=== PATIENT | male | born 1970 | race American Indian/Alaskan Native ===

== ENCOUNTER 2018-06-03 06:05 | Day surgery (SDC) | payer OTHER ==
[~2018-06-03] VITALS: Ht 165.1 cm; Wt 58.3 kg
[~2018-06-03 06:05] MED LIST: ACETAMINOPHEN325 M1 PO; ACIDOPHILUS1 EAC4 PO; ACIDOPHILUS1 EACH PO; ADULT WAL-100 MG/5 M PO; ALAVERT10 M1 PO; AMOX TR-K CLV1 EAC1 PO; ANTI-ITCH28 G1 TP; ATHLETE'S FOOT15 G1 TP; BACTRIM DS TAB1 EACH PO; BENZACLIN GEL25 GM TOP; CALCI-CHEW500 MG PO; CALCIUM ANTACID PO; CARBATROL300 MG PO; CEPHALEXIN500 MG PO; CHLORASEPTIC177 M1 MM; CITRATE OF MAG300 ML PO; CLARITIN10 M2 PO; CLEOCIN T30 ML TP; CLIND PH-BENZOY45 GM TP; CLINDA DERM TOP; CORTISONE14 GM TP; CORTIZONE-1028 GM TOP; COUGH SYRU100 MG/5 M PO; DEBROX15 ML; DEBROX15 ML OT; DIASTAT2.5 MG PR; DIAZEPAM GEL PR; DIAZEPAM5 MG RC; DIAZEPAM5 MG/5 ML PO; DOCUSATE SODIU100 MG PO; FLAGYL500 MG PO; GABAPENTIN100 MG PO; GABAPENTIN300 MG PO; GABAPENTIN400 MG PO; GUAIFENESIN; GUAIFENESIN600 MG PO; LAMISIL15 GM TOP; LOPERAMIDE2 MG PO; MAALOX MAXIMUM355 ML PO; MAALOX PLUS X-150 ML PO; MAG-AL ULTIMATE20 ML PO; MILK OF MA400 MG/5 M PO; MIRALAX17 GM PO; NITROFURANTOIN50 MG PO; NORCO 5-325 TA1 EACH PO; ONFI10 MG PO; OXYCODONE HCL5 MG PO; OXYCONTIN10 MG PO; PERCOCET 5-3251 EACH PO; POLYETHYLENE G255 GM PO; Q-PAP EXTRA ST500 MG PO; SELENIUM SULFI120 ML TOP; SENNA8.6 MG PO; STOOL SOFTENER100 M1 PO; TERBINAFINE15 GM TOP; THERAPEUTIC M1 EAC1 PO; THERAPEUTIC M1 EAC2 PO; THERAPEUTIC-M1 EAC3 PO; TUMS ULTRA400 MG PO; TUMS X-STR300 MG PO; TUMS300 MG PO; VICODIN 5-5001 EACH PO; VIMPAT100 MG PO; VIMPAT200 MG PO; XEROFORM PETRO1 EAC1 TOP; ZONEGRAN100 MG PO; ZONISAMIDE100 MG PO; [UNRECOGNIZED DRUG - OTHER]; [UNRECOGNIZED DRUG - OTHER] OTIC; [UNRECOGNIZED DRUG - OTHER] PO; [UNRECOGNIZED DRUG - OTHER] PO; [UNRECOGNIZED DRUG - OTHER] TP
--- NOTE | 2018-06-03 09:03 | NUR ---
06/03/18 0903 Ritika John 0871 PATIENT ARRIVES TO PACU ASLEEP, DOES NOT OPEN EYES TO VERBAL STIMULI, NON-VERBAL AT BASELINE. RESP EVEN AND UNLABORED, OCCASIONALLY SNORES. MASK AT 6 LITERS.
== END 2018-06-03 11:05 | disposition home or self-care (01) ==
LOC: OPS 06:05 → DS 06:05 → OPS 06:23 → DS 09:00 → OPS 09:00
PROVIDERS: Dentist
PROC: 0CRWXJ1 Replacement of Upper Tooth, Multiple, with Synthetic Substitute, External Approach (ICD-10-PCS; 2018-06-03)
PROC: 0CRXXJ1 Replacement of Lower Tooth, Multiple, with Synthetic Substitute, External Approach (ICD-10-PCS; principal; 2018-06-03 06:45)
DX: Z01.818 Encounter for other preprocedural examination (principal); G89.29 Other chronic pain; Z88.1 Allergy status to other antibiotic agents; Z79.899 Other long term (current) drug therapy
CPT/HCPCS: 00170; 70320; J0330; J1885; J2250; J2405; J2704; J7120

== ENCOUNTER 2021-10-31 05:40 | Day surgery (SDC) | payer OTHER ==
[~2021-10-31] VITALS: Ht 165.1 cm; Wt 62.4 kg
[~2021-10-31 05:40] MED LIST changes: +ANTIFUNGAL30 G1; +CLEOCIN T30 ML; +CLONAZEPAM1 M1 PO; +LAMICTAL150 MG PO; +MELATONIN5 M5 PO; +MIDAZOLAM; +OSTERA TABLET1 EACH PO; +OXYCONTIN15 MG PO
--- NOTE | 2021-10-31 08:07 | NUR ---
10/31/21 0807 Kayli Sr 0802- PT ARRIVES TO PACU NONAROUSABLE TO NOXIOUS STIMULI WITH AN OPA IN PLACE. RESP EVEN AND UNLABORED. OXYGEN SAT HIGH 90'S TO 100% ON 10L VIA MASK. PT NEEDING A JAW THRUST TO MAINTAIN PATENT AIRWAY. THIS IS BEING COMPLETE BY ARMIN JACKSON RN.
--- NOTE | 2021-10-31 10:03 | NUR ---
1000 - CAREGIVER STATES SHE IS COMOFORTABLE TAKING PT HOME, PT VOID AND HAD BOWEL MOVEMENT IN BREIF PRIOR TO DEPARTURE. CAREGIVER CLEAN PT AND PLACED HIM IN WHEELCHAIR. CAREGIVER WHEELED PT TO VEHICLE WITHOUT ASSISTANCE. PT CALM AND COOPERATIVE UPON DEPARTURE.
== END 2021-10-31 10:00 | disposition home or self-care (01) ==
LOC: OPS 05:40 → DS 05:40 → OPS 06:45
PROVIDERS: ATTEND Dentist General Practice
PROC: 0CQW0Z1 Repair of Upper Tooth, Multiple, Open Approach (ICD-10-PCS; principal; 2021-10-31 06:45)
DX: K05.6 Periodontal disease, unspecified (principal); F72 Severe intellectual disabilities; G80.0 Spastic quadriplegic cerebral palsy; G40.909 Epilepsy, unspecified, not intractable, without status epilepticus
CPT/HCPCS: 00170; 70320; J0330; J1100; J1885; J2250; J2405; J2704; J2765; J3010; J7121

== ENCOUNTER 2022-08-19 13:28 | Observation (INO) | payer OTHER ==
[~2022-08-19] VITALS: Ht 165.1 cm; Wt 79.0 kg
[~2022-08-19 13:28] MED LIST changes: -MIDAZOLAM; +MIDAZOLAM H NAS; -OSTERA TABLET1 EACH PO; +OXYCODONE HCL10 MG PO; -OXYCONTIN15 MG PO; -Q-PAP EXTRA ST500 MG PO; +TYLENOL EXTRA500 MG PO; +VITAMIN D350 MC3 PO
[2022-08-19] MEDS ORDERED: LAMICTAL150 MG PO (14:08)
[2022-08-19] MEDS ORDERED: VIMPAT200 MG PO ×2 (15:57→16:07)
[2022-08-19] MEDS ORDERED: ZONISAMIDE100 MG PO ×2 (16:09)
--- NOTE | 2022-08-19 17:16 | NUR ---
REPORT FROM AMANDO CEE RN.
--- NOTE | 2022-08-19 18:16 | NUR ---
PATIENT ADMITTED TO MED SURG. SKIN IS INTACT, ATTENDS IN PLACE, SMEAR BM NOTED. PATIENT IS RESTING COMFORTABLE, IS NOT AWAKE ENOUGH TO TAKE ORAL MEDICATIONS AT THIS TIME. EMIL MEJIA IN ROOM, GAVE HISTORY FOR PATIENT. CAREGIVERS WILL BE HERE IN THE MORNING AND WILL BRING ASHLY'S CUSTOM WHEELCHAIR. PHONE NUMBERS ARE WRITTEN ON THE WHITEBOARD ON WHO TO CONTACT. CAREGIVERS ARE AVAILABLE TO HELP WITH MEDICATION ADMINISTRATION IF NEEDED. PATIENT DOES HAVE A HISTORY OF SPITTING OUT HIS MEDICATIONS. PATIENT IS INCONTINENT AT BASELINE.
--- NOTE | 2022-08-19 18:17 | NUR ---
MED REC COMPLETE. PT TAKES MEDS IN [place] ACCORDING TO CAREGIVER.
--- NOTE | 2022-08-19 19:25 | NUR ---
bedside report from fior rn, pt sleeping soundly, resp even, iv fusing at 125/hr. r hand wnl, call light in reach, bed alarm on, seizure magnet at bedside.
--- NOTE | 2022-08-19 20:11 | NUR ---
PT AWOKE, GIVEN PO ZONSIMIDE WITH PUDDING - HOB UP HIGH AND RN FEEDING AND COACHING TO SWALLOW - PT GROANING AND SEEMED TO DISLIKE MEDS - SWALLOWED WITH EXTREME COACHING.
--- NOTE | 2022-08-19 21:15 | NUR ---
IN TO CHECK AND CHANGE PT, INCONT OF URINE, BOOSTED IN BED, BED ALARM IS ACTIVE, NO FURTHER NEEDS AT THIS TIME
--- NOTE | 2022-08-19 21:56 | NUR ---
HOB UP FOR PO MEDS, TAKEN WELL, PT GROANING, IV SITES FLUSHED AND WRAPPED WITH COBAN - PT PULLING AT THEM. CALL LIGHT AND BED ALARM ON WNL. IV CONTINUES TO FUSE. ORAL CARE DONE.
--- NOTE | 2022-08-19 23:31 | NUR ---
rn rounding, pt in bed, call light in reach - dozing off and awake, rn checked attends cdi.
--- NOTE | 2022-08-20 02:23 | NUR ---
THIS RN TURNED AND FULL LINEN CHANGE OF PT INC OF LARGE AMT OF URINE, SKIN CLEANED AND WNL INTACT. VITALS TAKEN WNL - EYE DROPS PLACED IN R EYE THAT IS RED AND CRUSTY - CALL LIGHT IN REACH AND PT ACROSS FROM RN STATION. BED ALARM ON.
--- NOTE | 2022-08-20 07:07 | NUR ---
RECIEVED SHIFT REPORT. PT RESTING IN BED WITH EYES CLOSED. CALL LIGHT WITHIN REACH.
--- NOTE | 2022-08-20 07:46 | NUR ---
this rn spoke with dr hyatt - asked about abx for today dr ralph order, also alerted him of mg 1.5 mg this am. no new orders. dr mcneal.
--- NOTE | 2022-08-20 08:05 | NUR ---
PT RESTING IN BED. PT BRIEF CHECKED. BRIEF OK AND DRY. PILLOW PUT UNDER PTS R HIP. NO NEEDS. CALL LIGHT WITHIN REACH.
--- NOTE | 2022-08-20 08:30 | NUR ---
MORNING ASSESSMENT COMPLETE. PT ALERT WITH MORNING MEDICATIONS AND TAKEN WITH PUDDING WITHOUT DIFFICULTY. PT SHOWS NO SIGN OF PAIN USING FLACC SCALE. SEZUIRE PADS PLACED ALONG SIDE BED RAILS. IVF AT 125 ML/HR PER EMR. CALL LIGHT WITHIN REACH.
--- NOTE | 2022-08-20 09:00 | NUR ---
PT RESTING IN BED. VITALS AND IS AND OS COMPLETE. NO NEEDS. CALL LIGHT WITHIN REACH.
--- NOTE | 2022-08-20 10:39 | NUR ---
PT RESTING IN BED WITH EYES CLOSED AT THIS TIME. CALL LIGHT WITHIN REACH.
--- NOTE | 2022-08-20 11:36 | NUR ---
PT LAYING IN BED WITH EYES CLOSED, BUT EASY TO AROUSE. VISITOR AT BEDSIDE. SEIZURE PRECAUTIONS IN PLACE. CALL LIGHT WITHIN REACH. SHOWS NO SIGN OF PAIN USING FLACC SCALE.
--- NOTE | 2022-08-20 12:30 | NUR ---
PT IN BED RESTING AT THIS TIME. CALL LIGHT WITHIN REACH.
--- NOTE | 2022-08-20 13:13 | NUR ---
IN ROOM TO TURN PATIENT IN BED. PT RESTING WITH EYES CLOSED. CALL LIGHT WITHIN REACH.
--- NOTE | 2022-08-20 14:16 | NUR ---
AFTERNOON ASSESSMENT COMPLETE. PT LAYING IN BED AWAKE. IVF RUNNING PER EMR. COMPLETE BED CHANGE DONE AT THIS TIME. NO SIGNS OF PAIN NOTED USING FLACC SCALE. CALL LIGHT WITHIN REACH.
--- NOTE | 2022-08-20 16:15 | NUR ---
PT RESTING IN BED. CALL LIGHT WITHIN REACH.
--- NOTE | 2022-08-20 17:15 | NUR ---
PT LYING IN BED WITH EYES CLOSED, RESPIRATIONS EVEN AND UNLABORED. CAREGIVER AT BEDSIDE. CALL LIGHT IN REACH. SEIZURE PRECAUTIONS IN PLACE.
--- NOTE | 2022-08-20 17:30 | NUR ---
PT IN BED SLEEPING. VITALS AND IS AND OS COMPLETE. NO NEEDS. CALL LIGHT WITHIN REACH.
--- NOTE | 2022-08-20 19:50 | NUR ---
IN TO GET VS, PT INCONT OF URINE, CLEANED UP, BOOSTED IN BED
--- NOTE | 2022-08-20 20:13 | NUR ---
Pt on room air, seizure precautions in place, was moaning. creamy scant amont of discharge from both eyes noted, bilat conjuctive reddish, eye oint as per orders, after face was cleansed. all procedures explained, non verbal. Was incontinent of large amount of urine, skin care, clean attends, turned and repositioned, took meds with small amount of puding, and tolerated sips of ensure. SL LA, IVF infusing RA. HOB elevated, aspiration precautions in place, heel protectors off at thist laverne, trace edema to LE, elevated. pt cooperative.
--- NOTE | 2022-08-20 23:07 | NUR ---
Repositionned, on room air, seizure pads around bed. no seizure acitivity, eyes closed, resting, no distress, IVF infusing w/o problems. Fall and Aspiration precautions in place.
--- NOTE | 2022-08-21 02:00 | NUR ---
IN TO CHECK ON PT FOR POSITIONING, PILLOW REMOVED FROM RIGHT SIDE, PT SOUND ASLEEP
--- NOTE | 2022-08-21 02:45 | NUR ---
IN WITH RN TO CHANGE PT DUE TO INCONT URINE, BOOSTED IN BED, NO FURTHER NEEDS AT THIS TIME
--- NOTE | 2022-08-21 05:39 | NUR ---
Pt on room air, clear lungs, occ moist non productive cough noted, aspiration precautions inplace, pureed diet, tolering ensures and liquids, meds givein with pudin, oral care given. dry crusty skin over lips. bilat eyes scant amount of creamy/yellow drainage. both eyes red conjuctivae noted. eye qtts applied as per orders, facial care done. IVF infusing R wrist area, contactures of arms and LE present. turned q2h, seizure and fall precautions in place. Kamini lift. Incontinent of large amount of urine, skin care and clean attends in place, moans at times, non verbal, all procedurees explained to pt prior to. call light at hands reach. Coop with assessments, vitals and labs
--- NOTE | 2022-08-21 06:39 | NUR ---
IN TO CHECK AND CHANGE PT, INCONT URINE, BOOSTED, NO FURTHER NEEDS AT THIS TIME
--- NOTE | 2022-08-21 07:20 | NUR ---
RECIEVED SHIFT REPORT. PT LAYING IN BED AWAKE. CALL LIGHT WITHIN REACH.
--- NOTE | 2022-08-21 07:55 | NUR ---
PT LAYING IN BED RESTING. 2 CNAS IN ROOM(1 BEING MYSELF). BRIEF CHECKED. BRIEF VERY SOILED. X3 XL BMS. PT CLEANED AND BRIEF AND GRISELDA CHANGED. PILLOW PUT UNDER LEFT HIP OF PT. NO NEEDS. CALL LIGHT WITHIN REACH.
--- NOTE | 2022-08-21 08:16 | NUR ---
ROUNDING ON PT W/AUDIO OPERATOR JOHN. PT HAD INCONTINENT BM/VOID. 2 PERSON ASSIST [place] [facility], PARTIAL LINEN CHANGE, BREIF CHANGE, INCONTINENET PAD CHANGED, PT REPOTIONED AND HEEL PROTECOTRS ON. PT TURNED TO R SIDE W/PILLOW AND PILLOW BETWEEN KNEES. PT IS RESTING IN BED COMFORTABLY. NO OTHER NEEDS AT THIS TIME.
--- NOTE | 2022-08-21 08:20 | NUR ---
MORNING ASSESSMENT COMPLETE. PT AWAKE IN BED, AND SMILING. ABLE TO TAKE MORNING MEDS WITH PUDDING WITHOUT DIFFICULTY AND DRANK HALF OF AN ENSURE. PT SHOWS NO SIGN OF PAIN USING FLACC SCALE. CALL LIGHT WITHIN REACH.
--- NOTE | 2022-08-21 09:05 | NUR ---
PT UPRIGHT IN BED AWAKE. VITALS AND IS AND OS COMPLETE. PULSE ELEVATED TO 152. RN NOTIFIED AND PRESENT IN ROOM. PULSE DOWN IN 70'S NOW. NO NEEDS. CALL LIGHT IN REACH.
--- NOTE | 2022-08-21 09:31 | NUR ---
PT LAYING IN BED AWAKE WATCHING TV. CALL LIGHT WITHIN REACH.
--- NOTE | 2022-08-21 10:05 | NUR ---
PT RESTING BED AT THIS TIME WITH EYES CLOSED. KCL RUNNING AT @ 131 ML/HR PER EMAR. CALL LIGHT WITHIN REACH.
--- NOTE | 2022-08-21 10:10 | NUR ---
PT IN BED. BEDBATH COMPLETE. NEW GRISELDA AND DRAW SHEET PUT DOWN. NEW GOWN PUT ON PT. NO NEEDS. WATER GIVEN TO PT. CALL LIGHT WITHIN REACH. CAREGIVER IN ROOM.
--- NOTE | 2022-08-21 10:19 | NUR ---
UPDATED ABOUT CRITICAL LACTIC LAB. HEADING TO PT. ROOM.
[2022-08-21] MEDS ORDERED: CEFDINIR300 MG PO (11:00)
--- NOTE | 2022-08-21 12:20 | NUR ---
PT LAYING IN BED. CAREGIVER AT BEDSIDE. CEFTRIAXONE IVPB AT 200 ML/HR (PER EMAR) AND AZITHROMYCIN RUNNING AT 250 ML/HR (PER EMAR). CALL LIGHT WITHIN REACH. PT SHOWS NO SIGNS OF PAIN USING FLACC SCALE.
--- NOTE | 2022-08-21 12:45 | NUR ---
CAREGIVER CALLED NURSE TO ADI REPORTING PT HAD VOMITTED. PT WITH SMAL AMOUNT OF EMESIS ON GOWN AND BLANKET. CLEANED PT UP. CAREGIVER DENIES ANYTHING THAT PROVOKED EMESIS. PT LOOKS COMFORTABLE NOW. LINENS ALSO CHANGED. DENEIS FURTHER NEEDS. PRIMARY NURSE NOTIFIED.
--- NOTE | 2022-08-21 13:02 | NUR ---
PT LAYING IN BED AWAKE. CAREGIVER AT BEDSIDE. CALL LIGHT WITHIN REACH.
--- NOTE | 2022-08-21 14:29 | NUR ---
SPOKE WITH MD REGARDING PT VOMITING EPISODE BEFORE LUNCH. INSTRUCTED TO INFORM CAREGIVERS NO CHANGES IN DISCHAGE PLANNING.
--- NOTE | 2022-08-21 15:25 | NUR ---
GIVEN CAREGIVER GUS DISCHARGE PAPERWORK. ALL QUESTIONS ANSWERED. VSS, PT DRESSED IN BED WAITING FOR WHEELCHAIR VAN. CALL LIGHT WITHIN REACH.
--- NOTE | 2022-08-23 17:06 | EKG ---
[facility] [address] [place], [place] [address] Signed Normal sinus rhythm Possible Inferior infarct , age undetermined ST \T\ T wave abnormality, consider anterior ischemia Abnormal ECG No previous ECGs available Confirmed by Ethel Matt MD () on 08/23/2022 5:06:03 PM Electronically Signed By: ETHEL MATT MD 08/23/22 1706 PATIENT NAME: FRANCINE CHANEL LAURE Electrocardiogram DATE OF : 66 PHYSICIAN: ETHEL MATT MD REPORT #: [id number] REPORT IS CONFIDENTIAL AND NOT TO BE RELEASED WITHOUT AUTHORIZATION
== END 2022-08-21 15:55 | disposition home or self-care (01) ==
LOC: ED 13:28 → MS 13:30
PROVIDERS: ADMIT Family Medicine; ATTEND Family Medicine
DX: J18.9 Pneumonia, unspecified organism (principal); N39.0 Urinary tract infection, site not specified; B96.89 Other specified bacterial agents as the cause of diseases classified elsewhere; F79 Unspecified intellectual disabilities; G40.909 Epilepsy, unspecified, not intractable, without status epilepticus; Z20.822 Contact with and (suspected) exposure to COVID-19; Z66 Do not resuscitate
CPT/HCPCS: 36415; 51701; 70450; 71045; 80053; 81001; 83605; 83690; 83735; 84484; 85025; 87040; 87088; 87186; 93005; 93010; 96372; 96376; 99285-25; C9803; G0378; J0456; J0696; J1650; J3475; J3480; J7030; J7060; U0003

== ENCOUNTER 2023-04-16 06:55 | Day surgery (SDC) | payer OTHER ==
[~2023-04-16] VITALS: Ht 167.6 cm; Wt 59.1 kg
[~2023-04-16 06:55] MED LIST changes: +ADT ROBITUSSIN PO; +CEFDINIR300 MG PO; +CLOBAZAM10 MG PO; +EAR WAX REMOVAL15 ML
[2023-04-16 07:15] VITALS: BP 97/58
--- NOTE | 2023-04-16 07:24 | NUR ---
SEIZURE PADS TO THE BED RAILS A PRECAUTION THE PT HAS A SEIZURE DISORDER. CAREGIVERS X2 AT THE BEDSIDE WITH CALL LIGHT.
--- NOTE | 2023-04-16 08:24 | NUR ---
PT SLEEPING IN BED, SNORING. PULSE OX IN PLACE. OXYGEN SAT HIGH 90'S TO 100% ON RA. CAREGIVERS X2 AT THE BEDSIDE.
--- NOTE | 2023-04-16 10:33 | NUR ---
04/16/23 1033 Shama Rodriguez 1022: PT ARRIVES TO PACU WITH ORAL AIRWAY IN PLACE, WITH A JAW THRUST IN PLACE BY CAN TENDER. HE HAS OBVIOUS STRIDOR UPON HIS ARRIVAL. A NASAL AIRWAY IS INSERTED. AIRWAY IS SUCTIONED FOR BLOOD TINGED SPUTUM.
[2023-04-16 10:54] VITALS: BP 140/83
--- NOTE | 2023-04-16 11:09 | NUR ---
PT ARRIVES TO DAY SURGERY AWAKE AND BACK TO BASELINE MENTATION. PT DOES NOT APPEAR PAINFUL ACCORDING TO FACES SCALE. PT'S CAREGIVERS AT THE BEDSIDE. CAREGIVERS PROVIDED WATER AND PUDDING FOR THE PT. WATER AND COFFEE PROVIDED TO THE CAREGIVERS. BED RAILS UP, CALL LIGHT WITH CAREGIVER, SEIZURE PADS IN PLACE A PRECAUTION THE PT HAS A SEIZURE DISORDER.
--- NOTE | 2023-04-16 11:48 | NUR ---
CAREGIVER REPORT THE PT HAS URINATED THROUGH HIS DEPENDS AND ONTO HIS SHEETS. PT CLEANED WITH WIPES AND CLEAN DEPENDS PROVIDED. PT DRESSED INTO HIS OWN CLOTHES BY HIS CAREGIVERS.
[2023-04-16 11:56] VITALS: BP 127/81
--- NOTE | 2023-04-16 12:04 | NUR ---
DC INSTRUCTIONS WENT OVER WITH PT'S CAREGIVERS. PT INTO HIS WHEELCHAIR BY HIS CAREGIVERS.
== END 2023-04-16 12:10 | disposition home or self-care (01) ==
LOC: DS 06:55
PROVIDERS: ATTEND Dentist General Practice
PROC: 0CRWXJ1 Replacement of Upper Tooth, Multiple, with Synthetic Substitute, External Approach (ICD-10-PCS; 2023-04-16)
PROC: 0CRXXJ1 Replacement of Lower Tooth, Multiple, with Synthetic Substitute, External Approach (ICD-10-PCS; principal; 2023-04-16 08:55)
DX: K03.6 Deposits [accretions] on teeth (principal); K02.9 Dental caries, unspecified
CPT/HCPCS: 00170; 36415; 80053; 85025; J0330; J1100; J1885; J2250; J2405; J2704; J2765; J3010; J7121

== ENCOUNTER 2023-07-19 11:10 | Emergency (ER) | payer OTHER ==
[~2023-07-19] VITALS: Ht 167.6 cm; Wt 71.5 kg
--- OUTSIDE RECORDS SUMMARY | ~2023-07-19 | XMS | Continuity of Care Document ---
Demographics + + + | Address | [address] | | | [place] [address] | + + + | Preferred Language | Unknown | + + + | Marital Status | Never | + + + | Tenriism Affiliation | Unknown | + + + | Race | or | + + + | Ethnic Group | Not or | + + + Author + + + | Author | [facility] | + + + | Organization | [facility] | + + + | Address | [address] | | | [place] [address] | + + + | Phone | | + + + Care Team Providers + + + + | Care Stucco Laborer Name | Role | Phone | + + + + Unavailable | Unavailable | + + + + Unavailable | Unavailable | + + + + Unavailable | Unavailable | + + + + Unavailable | Unavailable | + + + + Allergies and Intolerances + + + + + + | date | description | facility | reaction | severity | + + + + + + | (no date) | No Known Drug | [facility] | (no reaction) | (no severity) | | | Allergies | | | | + + + + + + Encounters No information. Functional Status No information. Immunizations No information. Medications + + + + | date | description | facility | + + + + | 2022-08-21 00:00 | CALCIUM CARBONATE | [facility] | + + + + | 2023-04-16 00:00 | CALCIUM CARBONATE | [facility] | + + + + | 2023-06-15 00:00 | CALCIUM CARBONATE | [facility] | + + + + | 2022-08-21 00:00 | CALCIUM CARBONATE | [facility] | + + + + | 2023-04-16 00:00 | CALCIUM CARBONATE | [facility] | + + + + | 2023-06-15 00:00 | CALCIUM CARBONATE | [facility] | + + + + | 2015-04-09 00:00 | OXYCODONE HCL | [facility] | + + + + | 2015-04-09 00:00 | OXYCODONE HCL | [facility] | + + + + | 2015-04-09 00:00 | OXYCODONE HCL | [facility] | + + + + | 2015-04-09 00:00 | OXYCODONE HCL | [facility] | + + + + | 2015-04-09 00:00 | OXYCODONE HCL | [facility] | + + + + | 2015-04-09 00:00 | OXYCODONE HCL | [facility] | + + + + | 2015-04-26 00:00 | OXYCODONE HCL | [facility] | + + + + | 2015-04-26 00:00 | OXYCODONE HCL | [facility] | + + + + | 2015-04-26 00:00 | OXYCODONE HCL | [facility] | + + + + | 2014-08-10 00:00 | OXYCODONE | [facility] | | | HCL/ACETAMINOPHEN | | + + + + | 2014-08-10 00:00 | OXYCODONE | [facility] | | | HCL/ACETAMINOPHEN | | + + + + | 2014-08-10 00:00 | OXYCODONE | [facility] | | | HCL/ACETAMINOPHEN | | + + + + | 2022-08-21 00:00 | OXYCODONE HCL | [facility] | + + + + | 2023-04-16 00:00 | OXYCODONE HCL | [facility] | + + + + | 2023-06-15 00:00 | OXYCODONE HCL | [facility] | + + + + | 2022-08-21 00:00 | MAGNESIUM CITRATE | [facility] | + + + + | 2023-04-16 00:00 | MAGNESIUM CITRATE | [facility] | + + + + | 2023-06-15 00:00 | MAGNESIUM CITRATE | [facility] | + + + + | 2022-08-21 00:00 | DOCUSATE SODIUM | [facility] | + + + + | 2023-04-16 00:00 | DOCUSATE SODIUM | [facility] | + + + + | 2023-06-15 00:00 | DOCUSATE SODIUM | [facility] | + + + + | 2022-08-21 00:00 | PHENOL | [facility] | + + + + | 2023-04-16 00:00 | PHENOL | [facility] | + + + + | 2023-06-15 00:00 | PHENOL | [facility] | + + + + | 2022-08-21 00:00 | DOCUSATE SODIUM | [facility] | + + + + | 2023-04-16 00:00 | DOCUSATE SODIUM | [facility] | + + + + | 2023-06-15 00:00 | DOCUSATE SODIUM | [facility] | + + + + | 2022-08-21 00:00 | CLOBAZAM | [facility] | + + + + | 2023-04-16 00:00 | CLOBAZAM | [facility] | + + + + | 2023-06-15 00:00 | CLOBAZAM | [facility] | + + + + | 2022-08-21 00:00 | CLINDAMYCIN PHOS/BENZOYL | [facility] | | | PEROX | | + + + + | 2023-04-16 00:00 | CLINDAMYCIN PHOS/BENZOYL | [facility] | | | PEROX | | + + + + | 2023-06-15 00:00 | CLINDAMYCIN PHOS/BENZOYL | [facility] | | | PEROX | | + + + + | 2023-04-16 00:00 | POTASSIUM CITRATE/CITRIC | [facility] | | | ACID | | + + + + | 2023-06-15 00:00 | POTASSIUM CITRATE/CITRIC | [facility] | | | ACID | | + + + + | 2022-08-21 00:00 | POTASSIUM CITRATE/CITRIC | [facility] | | | ACID | | + + + + | 2022-08-21 00:00 | Melatonin | [facility] | + + + + | 2023-04-16 00:00 | Melatonin | [facility] | + + + + | 2023-06-15 00:00 | Melatonin | [facility] | + + + + | 2022-08-21 00:00 | ACETAMINOPHEN | [facility] | + + + + | 2023-04-16 00:00 | ACETAMINOPHEN | [facility] | + + + + | 2023-06-15 00:00 | ACETAMINOPHEN | [facility] | + + + + | 2022-08-21 00:00 | CEFDINIR | [facility] | + + + + | 2022-08-21 00:00 | LAMOTRIGINE | [facility] | + + + + | 2023-04-16 00:00 | LAMOTRIGINE | [facility] | + + + + | 2023-06-15 00:00 | LAMOTRIGINE | [facility] | + + + + | 2022-08-21 00:00 | METRONIDAZOLE | [facility] | + + + + | 2023-04-16 00:00 | METRONIDAZOLE | [facility] | + + + + | 2023-06-15 00:00 | METRONIDAZOLE | [facility] | + + + + | 2022-08-21 00:00 | MAGNESIUM HYDROXIDE | [facility] | + + + + | 2023-04-16 00:00 | MAGNESIUM HYDROXIDE | [facility] | + + + + | 2023-06-15 00:00 | MAGNESIUM HYDROXIDE | [facility] | + + + + | 2022-08-21 00:00 | ZONISAMIDE | [facility] | + + + + | 2023-04-16 00:00 | ZONISAMIDE | [facility] | + + + + | 2023-06-15 00:00 | ZONISAMIDE | [facility] | + + + + | 2022-08-21 00:00 | CLINDAMYCIN PHOS/BENZOYL | [facility] | | | PEROX | | + + + + | 2023-04-16 00:00 | CLINDAMYCIN PHOS/BENZOYL | [facility] | | | PEROX | | + + + + | 2023-06-15 00:00 | CLINDAMYCIN PHOS/BENZOYL | [facility] | | | PEROX | | + + + + | 2015-07-07 00:00 | CEPHALEXIN | [facility] | + + + + | 2015-07-07 00:00 | CEPHALEXIN | [facility] | + + + + | 2015-07-07 00:00 | CEPHALEXIN | [facility] | + + + + | 2022-08-21 00:00 | DIAZEPAM | [facility] | + + + + | 2023-04-16 00:00 | DIAZEPAM | [facility] | + + + + | 2023-06-15 00:00 | DIAZEPAM | [facility] | + + + + | 2022-08-21 00:00 | GABAPENTIN | [facility] | + + + + | 2023-04-16 00:00 | GABAPENTIN | [facility] | + + + + | 2023-06-15 00:00 | GABAPENTIN | [facility] | + + + + | 2022-08-21 00:00 | GABAPENTIN | [facility] | + + + + | 2023-04-16 00:00 | GABAPENTIN | [facility] | + + + + | 2023-06-15 00:00 | GABAPENTIN | [facility] | + + + + | 2022-08-21 00:00 | GUAIFENESIN | [facility] | + + + + | 2023-04-16 00:00 | GUAIFENESIN | [facility] | + + + + | 2023-06-15 00:00 | GUAIFENESIN | [facility] | + + + + | 2022-08-21 00:00 | MIDAZOLAM HCL | [facility] | + + + + | 2023-04-16 00:00 | MIDAZOLAM HCL | [facility] | + + + + | 2023-06-15 00:00 | MIDAZOLAM HCL | [facility] | + + + + | 2015-04-25 00:00 | SENNOSIDES | [facility] | + + + + | 2015-04-25 00:00 | SENNOSIDES | [facility] | + + + + | 2015-04-25 00:00 | SENNOSIDES | [facility] | + + + + | 2015-04-26 00:00 | SENNOSIDES | [facility] | + + + + | 2015-04-26 00:00 | SENNOSIDES | [facility] | + + + + | 2015-04-26 00:00 | SENNOSIDES | [facility] | + + + + | 2022-08-21 00:00 | CARBAMAZEPINE | [facility] | + + + + | 2023-04-16 00:00 | CARBAMAZEPINE | [facility] | + + + + | 2023-06-15 00:00 | CARBAMAZEPINE | [facility] | + + + + | 2022-08-21 00:00 | ZONISAMIDE | [facility] | + + + + | 2023-04-16 00:00 | ZONISAMIDE | [facility] | + + + + | 2023-06-15 00:00 | ZONISAMIDE | [facility] | + + + + | 2022-08-21 00:00 | CLONAZEPAM | [facility] | + + + + | 2023-04-16 00:00 | CLONAZEPAM | [facility] | + + + + | 2023-06-15 00:00 | CLONAZEPAM | [facility] | + + + + | 2022-08-21 00:00 | LORATADINE | [facility] | + + + + | 2023-04-16 00:00 | LORATADINE | [facility] | + + + + | 2023-06-15 00:00 | LORATADINE | [facility] | + + + + | 2022-08-21 00:00 | CALCIUM CARBONATE | [facility] | + + + + | 2023-04-16 00:00 | CALCIUM CARBONATE | [facility] | + + + + | 2023-06-15 00:00 | CALCIUM CARBONATE | [facility] | + + + + | 2022-08-21 00:00 | MAG HYDROX/AL | [facility] | | | HYDROX/SIMETH | | + + + + | 2023-04-16 00:00 | MAG HYDROX/AL | [facility] | | | HYDROX/SIMETH | | + + + + | 2023-06-15 00:00 | MAG HYDROX/AL | [facility] | | | HYDROX/SIMETH | | + + + + | 2022-08-21 00:00 | LACTOBACILLUS ACIDOPHILUS | [facility] | + + + + | 2023-04-16 00:00 | CARBAMIDE PEROXIDE | [facility] | + + + + | 2023-06-15 00:00 | CARBAMIDE PEROXIDE | [facility] | + + + + | 2022-08-21 00:00 | Cholecalciferol (Vitamin | [facility] | | | D3) | | + + + + | 2023-04-16 00:00 | Cholecalciferol (Vitamin | [facility] | | | D3) | | + + + + | 2023-06-15 00:00 | Cholecalciferol (Vitamin | [facility] | | | D3) | | + + + + | 2022-08-21 00:00 | DIAZEPAM | [facility] | + + + + | 2023-04-16 00:00 | DIAZEPAM | [facility] | + + + + | 2023-06-15 00:00 | DIAZEPAM | [facility] | + + + + | 2022-08-21 00:00 | CLINDAMYCIN PHOSPHATE | [facility] | + + + + | 2023-04-16 00:00 | CLINDAMYCIN PHOSPHATE | [facility] | + + + + | 2023-06-15 00:00 | CLINDAMYCIN PHOSPHATE | [facility] | + + + + | 2022-08-21 00:00 | LACOSAMIDE | [facility] | + + + + | 2023-04-16 00:00 | LACOSAMIDE | [facility] | + + + + | 2023-06-15 00:00 | LACOSAMIDE | [facility] | + + + + | 2022-08-21 00:00 | CARBAMIDE PEROXIDE | [facility] | + + + + | 2023-04-16 00:00 | CARBAMIDE PEROXIDE | [facility] | + + + + | 2023-06-15 00:00 | CARBAMIDE PEROXIDE | [facility] | + + + + | 2022-08-21 00:00 | LORATADINE | [facility] | + + + + | 2023-04-16 00:00 | LORATADINE | [facility] | + + + + | 2023-06-15 00:00 | LORATADINE | [facility] | + + + + | 2015-07-07 00:00 | | [facility] | | | SULFAMETHOXAZOLE/TRIMETHOPR | | | | IM DS | | + + + + | 2015-07-07 00:00 | | [facility] | | | SULFAMETHOXAZOLE/TRIMETHOPR | | | | IM DS | | + + + + | 2015-07-07 00:00 | | [facility] | | | SULFAMETHOXAZOLE/TRIMETHOPR | | | | IM DS | | + + + + | 2015-04-25 00:00 | POLYETHYLENE GLYCOL 3350 | [facility] | + + + + | 2015-04-25 00:00 | POLYETHYLENE GLYCOL 3350 | [facility] | + + + + | 2015-04-25 00:00 | POLYETHYLENE GLYCOL 3350 | [facility] | + + + + | 2022-08-21 00:00 | POLYETHYLENE GLYCOL 3350 | [facility] | + + + + | 2023-04-16 00:00 | POLYETHYLENE GLYCOL 3350 | [facility] | + + + + | 2023-06-15 00:00 | POLYETHYLENE GLYCOL 3350 | [facility] | + + + + | 2022-08-21 00:00 | POLYETHYLENE GLYCOL 3350 | [facility] | + + + + | 2023-04-16 00:00 | POLYETHYLENE GLYCOL 3350 | [facility] | + + + + | 2023-06-15 00:00 | POLYETHYLENE GLYCOL 3350 | [facility] | + + + + | 2022-08-21 00:00 | LOPERAMIDE HCL | [facility] | + + + + | 2023-04-16 00:00 | LOPERAMIDE HCL | [facility] | + + + + | 2023-06-15 00:00 | LOPERAMIDE HCL | [facility] | + + + + Problems + + + + | date | description | facility | + + + + | 2014-08-10 00:00 | Osteoarthritis of hip | [facility] | + + + + | 2014-08-10 00:00 | Osteoarthritis of hip | [facility] | + + + + | 2014-08-10 00:00 | Osteoarthritis of hip | [facility] | + + + + | 2015-04-23 00:00 | Obstipation | [facility] | + + + + | 2015-04-23 00:00 | Obstipation | [facility] | + + + + | 2015-04-23 00:00 | Obstipation | [facility] | + + + + | 2015-04-23 00:00 | Urinary tract infection | [facility] | + + + + | 2015-04-23 00:00 | Urinary tract infection | [facility] | + + + + | 2015-04-23 00:00 | Urinary tract infection | [facility] | + + + + | 2015-07-07 00:00 | Acute urinary tract | [facility] | | | infection | | + + + + | 2015-07-07 00:00 | Acute urinary tract | [facility] | | | infection | | + + + + | 2015-07-07 00:00 | Acute urinary tract | [facility] | | | infection | | + + + + | 2023-04-16 06:55 | MILD COGNITIVE IMPAIRMENT | [facility] | | | OF UNCERTAIN O | | + + + + | 2023-04-16 06:55 | DENTAL CARIES, UNSPECIFIED | [facility] | | | | | + + + + | 2023-04-16 06:55 | DEPOSITS [ACCRETIONS] ON | [facility] | | | TEETH | | + + + + | 2023-04-16 06:55 | OTHER SPECIFIED DISORDERS | [facility] | | | OF TEETH AND SUPPORTING | | | | STRUCTURES | | + + + + | 2023-04-16 06:55 | UNSPECIFIED CONVULSIONS | [facility] | + + + + | 2023-05-15 00:00 | CEREBRAL PALSY, | [facility] | | | UNSPECIFIED | | + + + + Procedures No information. Results/Labs +--------+--------+ +---------+--------+---------+ | test | date | facility | value | unit | notes | +--------+--------+ +---------+--------+---------+ + + | Result panel 1 | + + + + + +------+ + + | | 2022-08-19 | [facility] | 77 | (missing) | (missing) | | (unavailable | 13:41 | [facility] | | | | + + + +------+ + + + + | Result panel 2 | + + + + + +------+ + + | | 2022-08-19 | [facility] | 11 | (missing) | (missing) | | (unavailable | 13:41 | [facility] | | | | + + + +------+ + + + + | Result panel 3 | + + + + + +------+ + + | | 2022-08-19 | [facility] | 12 | (missing) | (missing) | | (unavailable | 13:41 | [facility] | | | | + + + +------+ + + + + | Result panel 4 | + + + + + +------+ + + | | 2022-08-19 | [facility] | 83 | (missing) | (missing) | | (unavailable | 13:41 | [facility] | | | | + + + +------+ + + + + | Result panel 5 | + + + + + +-------+ + + | | 2022-08-19 | [facility] | 4.5 | (missing) | (missing) | | (unavailable | 13:41 | [facility] | | | | + + + +-------+ + + + + | Result panel 6 | + + + + + +-------+ + + | | 2022-08-19 | [facility] | 1.2 | (missing) | (missing) | | (unavailable | 13:41 | [facility] | | | | + + + +-------+ + + + + | Result panel 7 | + + + + + + + + + | | 2022-08-19 | [facility] | YELLOW | (missing) | (missing) | | (unavailable | 13:55 | [facility] | | | | + + + + + + + + + | Result panel 8 | + + + + + +---------+ + + | | 2022-08-19 | [facility] | CLEAR | (missing) | (missing) | | (unavailable | 13:55 | [facility] | | | | + + + +---------+ + + + + | Result panel 9 | + + + + + + + + + | | 2022-08-19 | [facility] | NEGATIVE | (missing) | (missing) | | (unavailable | 13:55 | [facility] | | | | + + + + + + + + + | Result panel 10 | + + + + + + + + + | | 2022-08-19 | [facility] | NEGATIVE | (missing) | (missing) | | (unavailable | 13:55 | [facility] | | | | + + + + + + + + + | Result panel 11 | + + + + + + + + + | | 2022-08-19 | [facility] | NEGATIVE | (missing) | (missing) | | (unavailable | 13:55 | [facility] | | | | + + + + + + + + + | Result panel 12 | + + + + + + + + + | | 2022-08-19 | [facility] | >=1.030 | (missing) | (missing) | | (unavailable | 13:55 | [facility] | | | | + + + + + + + + + | Result panel 13 | + + + + + + + + + | | 2022-08-19 | [facility] | MODERATE | (missing) | (missing) | | (unavailable | 13:55 | [facility] | | | | + + + + + + + + + | Result panel 14 | + + + + + +-------+ + + | | 2022-08-19 | [facility] | 6.0 | (missing) | (missing) | | (unavailable | 13:55 | [facility] | | | | + + + +-------+ + + + + | Result panel 15 | + + + + + +-------+ + + | | 2022-08-19 | [facility] | 100 | (missing) | (missing) | | (unavailable | 13:55 | [facility] | | | | + + + +-------+ + + + + | Result panel 16 | + + + + + + + + + | | 2022-08-19 | [facility] | NORMAL | (missing) | (missing) | | (unavailable | 13:55 | [facility] | | | | + + + + + + + + + | Result panel 17 | + + + + + + + + + | | 2022-08-19 | [facility] | NEGATIVE | (missing) | (missing) | | (unavailable | 13:55 | [facility] | | | | + + + + + + + + + | Result panel 18 | + + + + + +---------+ + + | | 2022-08-19 | [facility] | TRACE | (missing) | (missing) | | (unavailable | 13:55 | [facility] | | | | + + + +---------+ + + + + | Result panel 19 | + + + + + +-------+ + + | | 2022-08-19 | [facility] | 2-3 | (missing) | (missing) | | (unavailable | 13:55 | [facility] | | | | + + + +-------+ + + + + | Result panel 20 | + + + + + +---------+ + + | | 2022-08-19 | [facility] | 12-20 | (missing) | (missing) | | (unavailable | 13:55 | [facility] | | | | + + + +---------+ + + + + | Result panel 21 | + + + + + + + + + | | 2022-08-19 | [facility] | SQUAMOUS 1+ | (missing) | (missing) | | (unavailable | 13:55 | [facility] | | | | + + + + + + + + + | Result panel 22 | + + + + + + + + + | | 2022-08-19 | [facility] | NONE SEEN | (missing) | (missing) | | (unavailable | 13:55 | [facility] | | | | + + + + + + + + + | Result panel 23 | + + + + + +------+ + + | | 2022-08-19 | [facility] | 4+ | (missing) | (missing) | | (unavailable | 13:55 | [facility] | | | | + + + +------+ + + + + | Result panel 24 | + + + + + + + + + | | 2022-08-19 | [facility] | NONE SEEN | (missing) | (missing) | | (unavailable | 13:55 | [facility] | | | | + + + + + + + + + | Result panel 25 | + + + + + +-------+ + + | | 2022-08-19 | [facility] | Yes | (missing) | (missing) | | (unavailable | 13:55 | [facility] | | | | + + + +-------+ + + + + | Result panel 26 | + + + + + + + + + | | 2022-08-19 | [facility] | CLEAN CATCH | (missing) | (missing) | | (unavailable | 13:55 | [facility] | | | | + + + + + + + + + | Result panel 27 | + + + + + + + + + | | 2022-08-19 | [facility] | NEGATIVE | (missing) | (missing) | | (unavailable | 14:08 | [facility] | | | | + + + + + + + + + | Result panel 28 | + + + + + +-------+ + + | | 2022-08-21 | [facility] | 7.0 | (missing) | (missing) | | (unavailable | 05:35 | [facility] | | | | + + + +-------+ + + + + | Result panel 29 | + + + + + +--------+ + + | | 2022-08-21 | [facility] | 3.68 | (missing) | (missing) | | (unavailable | 05:35 | [facility] | | | | + + + +--------+ + + + + | Result panel 30 | + + + + + +--------+ + + | | 2022-08-21 | [facility] | 11.2 | (missing) | (missing) | | (unavailable | 05:35 | [facility] | | | | + + + +--------+ + + + + | Result panel 31 | + + + + + +--------+ + + | | 2022-08-21 | [facility] | 33.1 | (missing) | (missing) | | (unavailable | 05:35 | [facility] | | | | + + + +--------+ + + + + | Result panel 32 | + + + + + +--------+ + + | | 2022-08-21 | [facility] | 90.0 | (missing) | (missing) | | (unavailable | 05:35 | [facility] | | | | + + + +--------+ + + + + | Result panel 33 | + + + + + +--------+ + + | | 2022-08-21 | [facility] | 30.3 | (missing) | (missing) | | (unavailable | 05:35 | [facility] | | | | + + + +--------+ + + + + | Result panel 34 | + + + + + +--------+ + + | | 2022-08-21 | [facility] | 33.7 | (missing) | (missing) | | (unavailable | 05:35 | [facility] | | | | + + + +--------+ + + + + | Result panel 35 | + + + + + +--------+ + + | | 2022-08-21 | [facility] | 13.5 | (missing) | (missing) | | (unavailable | 05:35 | [facility] | | | | + + + +--------+ + + + + | Result panel 36 | + + + + + +-------+ + + | | 2022-08-21 | [facility] | 177 | (missing) | (missing) | | (unavailable | 05:35 | [facility] | | | | + + + +-------+ + + + + | Result panel 37 | + + + + + +--------+ + + | | 2022-08-21 | [facility] | 73.1 | (missing) | (missing) | | (unavailable | 05:35 | [facility] | | | | + + + +--------+ + + + + | Result panel 38 | + + + + + +--------+ + + | | 2022-08-21 | [facility] | 17.0 | (missing) | (missing) | | (unavailable | 05:35 | [facility] | | | | + + + +--------+ + + + + | Result panel 39 | + + + + + +-------+ + + | | 2022-08-21 | [facility] | 8.0 | (missing) | (missing) | | (unavailable | 05:35 | [facility] | | | | + + + +-------+ + + + + | Result panel 40 | + + + + + +-------+ + + | | 2022-08-21 | [facility] | 1.4 | (missing) | (missing) | | (unavailable | 05:35 | [facility] | | | | + + + +-------+ + + + + | Result panel 41 | + + + + + +-------+ + + | | 2022-08-21 | [facility] | 0.5 | (missing) | (missing) | | (unavailable | 05:35 | [facility] | | | | + + + +-------+ + + + + | Result panel 42 | + + + + + +-------+---------+ + | | 2022-08-21 | [facility] | 105 | mg/dL | (missing) | | (unavailable | 05:35 | [facility] | | | | | ) | | [facility] | | | | + + + +-------+---------+ + + + | Result panel 43 | + + + + + +-----+---------+ + | | 2022-08-21 | [facility] | 8 | mg/dL | (missing) | | (unavailable | 05:35 | [facility] | | | | + + + +-----+---------+ + + + | Result panel 44 | + + + + + +--------+---------+ + | | 2022-08-21 | [facility] | 0.69 | mg/dL | (missing) | | (unavailable | 05:35 | [facility] | | | | + + + +--------+---------+ + + + | Result panel 45 | + + + + + +-------+ + + | | 2022-08-21 | [facility] | 110 | (missing) | (missing) | | (unavailable | 05:35 | [facility] | | | | + + + +-------+ + + + + | Result panel 46 | + + + + + +---------+ + + | | 2022-08-21 | [facility] | 11.59 | (missing) | (missing) | | (unavailable | 05:35 | [facility] | | | | + + + +---------+ + + + + | Result panel 47 | + + + + + +-------+ + + | | 2022-08-21 | [facility] | 144 | (missing) | (missing) | | (unavailable | 05:35 | [facility] | | | | + + + +-------+ + + + + | Result panel 48 | + + + + + +-------+ + + | | 2022-08-21 | [facility] | 3.1 | (missing) | (missing) | | (unavailable | 05:35 | [facility] | | | | + + + +-------+ + + + + | Result panel 49 | + + + + + +-------+ + + | | 2022-08-21 | [facility] | 111 | (missing) | (missing) | | (unavailable | 05:35 | [facility] | | | | + + + +-------+ + + + + | Result panel 50 | + + + + + +------+ + + | | 2022-08-21 | [facility] | 20 | (missing) | (missing) | | (unavailable | 05:35 | [facility] | | | | + + + +------+ + + + + | Result panel 51 | + + + + + +--------+ + + | | 2022-08-21 | [facility] | 16.1 | (missing) | (missing) | | (unavailable | 05:35 | [facility] | | | | + + + +--------+ + + + + | Result panel 52 | + + + + + +-------+---------+ + | | 2022-08-21 | [facility] | 8.1 | mg/dL | (missing) | | (unavailable | 05:35 | [facility] | | | | + + + +-------+---------+ + + + | Result panel 53 | + + + + + +-------+---------+ + | | 2022-08-21 | [facility] | 1.8 | mg/dL | (missing) | | (unavailable | 05:35 | [facility] | | | | + + + +-------+---------+ + + + | Result panel 54 | + + + + + +-------+ + + | | 2022-08-21 | [facility] | 6.5 | (missing) | (missing) | | (unavailable | 05:35 | [facility] | | | | + + + +-------+ + + + + | Result panel 55 | + + + + + +-------+ + + | | 2022-08-21 | [facility] | 2.3 | (missing) | (missing) | | (unavailable | 05:35 | [facility] | | | | + + + +-------+ + + + + | Result panel 56 | + + + + + +-------+ + + | | 2022-08-21 | [facility] | 4.2 | (missing) | (missing) | | (unavailable | 05:35 | [facility] | | | | + + + +-------+ + + + + | Result panel 57 | + + + + + +--------+ + + | | 2022-08-21 | [facility] | 0.55 | (missing) | (missing) | | (unavailable | 05:35 | [facility] | | | | + + + +--------+ + + + + | Result panel 58 | + + + + + +-------+ + + | | 2022-08-21 | [facility] | 0.3 | (missing) | (missing) | | (unavailable | 05:35 | [facility] | | | | + + + +-------+ + + + + | Result panel 59 | + + + + + +------+ + + | | 2022-08-21 | [facility] | 16 | (missing) | (missing) | | (unavailable | 05:35 | [facility] | | | | + + + +------+ + + + + | Result panel 60 | + + + + + +------+ + + | | 2022-08-21 | [facility] | 24 | (missing) | (missing) | | (unavailable | 05:35 | [facility] | | | | + + + +------+ + + + + | Result panel 61 | + + + + + +------+ + + | | 2022-08-21 | [facility] | 76 | (missing) | (missing) | | (unavailable | 05:35 | [facility] | | | | + + + +------+ + + + + | Result panel 62 | + + + + + +-------+ + + | | 2023-04-16 | [facility] | 5.3 | (missing) | (missing) | | (unavailable | :14:07 | [facility] | | | | + + + +-------+ + + + + | Result panel 63 | + + + + + +--------+ + + | | 2023-04-16 | [facility] | 55.0 | (missing) | (missing) | | (unavailable | :14:07 | [facility] | | | | + + + +--------+ + + + + | Result panel 64 | + + + + + +--------+ + + | | 2023-04-16 | [facility] | 35.3 | (missing) | (missing) | | (unavailable | 09:14:07 | [facility] | | | | + + + +--------+ + + + + | Result panel 65 | + + + + + +-------+ + + | | 2023-04-16 | [facility] | 6.0 | (missing) | (missing) | | (unavailable | 09:14:07 | [facility] | | | | + + + +-------+ + + + + | Result panel 66 | + + + + + +-------+ + + | | 2023-04-16 | [facility] | 3.3 | (missing) | (missing) | | (unavailable | 09:14:07 | [facility] | | | | + + + +-------+ + + + + | Result panel 67 | + + + + + +-------+ + + | | 2023-04-16 | [facility] | 0.4 | (missing) | (missing) | | (unavailable | 09:14:07 | [facility] | | | | + + + +-------+ + + + + | Result panel 68 | + + + + + +-------+---------+ + | | 2023-04-16 | [facility] | 109 | mg/dL | (missing) | | (unavailable | 09:14:07 | [facility] | | | | + + + +-------+---------+ + + + | Result panel 69 | + + + + + +------+---------+ + | | 2023-04-16 | [facility] | 15 | mg/dL | (missing) | | (unavailable | 09:14:07 | [facility] | | | | + + + +------+---------+ + + + | Result panel 70 | + + + + + +--------+---------+ + | | 2023-04-16 | [facility] | 0.85 | mg/dL | (missing) | | (unavailable | 09:14:07 | [facility] | | | | + + + +--------+---------+ + + + | Result panel 71 | + + + + + +-------+ + + | | 2023-04-16 | [facility] | 103 | (missing) | (missing) | | (unavailable | 09:14:07 | [facility] | | | | + + + +-------+ + + + + | Result panel 72 | + + + + + +---------+ + + | | 2023-04-16 | [facility] | 17.64 | (missing) | (missing) | | (unavailable | 09:14:07 | [facility] | | | | + + + +---------+ + + + + | Result panel 73 | + + + + + +--------+ + + | | 2023-04-16 | [facility] | 3.89 | (missing) | (missing) | | (unavailable | 09:14:07 | [facility] | | | | + + + +--------+ + + + + | Result panel 74 | + + + + + +-------+ + + | | 2023-04-16 | [facility] | 138 | (missing) | (missing) | | (unavailable | 09:14:07 | [facility] | | | | + + + +-------+ + + + + | Result panel 75 | + + + + + +-------+ + + | | 2023-04-16 | [facility] | 4.5 | (missing) | (missing) | | (unavailable | 09:14:07 | [facility] | | | | + + + +-------+ + + + + | Result panel 76 | + + + + + +-------+ + + | | 2023-04-16 | [facility] | 104 | (missing) | (missing) | | (unavailable | 09:14:07 | [facility] | | | | + + + +-------+ + + + + | Result panel 77 | + + + + + +------+ + + | | 2023-04-16 | [facility] | 23 | (missing) | (missing) | | (unavailable | 09:14:07 | [facility] | | | | + + + +------+ + + + + | Result panel 78 | + + + + + +--------+ + + | | 2023-04-16 | [facility] | 15.5 | (missing) | (missing) | | (unavailable | 09:14:07 | [facility] | | | | + + + +--------+ + + + + | Result panel 79 | + + + + + +-------+---------+ + | | 2023-04-16 | [facility] | 8.4 | mg/dL | (missing) | | (unavailable | 09:14:07 | [facility] | | | | + + + +-------+---------+ + + + | Result panel 80 | + + + + + +-------+ + + | | 2023-04-16 | [facility] | 6.9 | (missing) | (missing) | | (unavailable | 09:14:07 | [facility] | | | | + + + +-------+ + + + + | Result panel 81 | + + + + + +-------+ + + | | 2023-04-16 | [facility] | 3.1 | (missing) | (missing) | | (unavailable | 09:14:07 | [facility] | | | | + + + +-------+ + + + + | Result panel 82 | + + + + + +-------+ + + | | 2023-04-16 | [facility] | 3.8 | (missing) | (missing) | | (unavailable | 09:14:07 | [facility] | | | | + + + +-------+ + + + + | Result panel 83 | + + + + + +--------+ + + | | 2023-04-16 | [facility] | 0.82 | (missing) | (missing) | | (unavailable | 09:14:07 | [facility] | | | | + + + +--------+ + + + + | Result panel 84 | + + + + + +--------+ + + | | 2023-04-16 | [facility] | 11.8 | (missing) | (missing) | | (unavailable | 09:14:07 | [facility] | | | | + + + +--------+ + + + + | Result panel 85 | + + + + + +-------+ + + | | 2023-04-16 | [facility] | 0.3 | (missing) | (missing) | | (unavailable | 09:14:07 | [facility] | | | | + + + +-------+ + + + + | Result panel 86 | + + + + + +------+ + + | | 2023-04-16 | [facility] | 13 | (missing) | (missing) | | (unavailable | 09:14:07 | [facility] | | | | + + + +------+ + + + + | Result panel 87 | + + + + + +------+ + + | | 2023-04-16 | [facility] | 19 | (missing) | (missing) | | (unavailable | 09:14:07 | [facility] | | | | + + + +------+ + + + + | Result panel 88 | + + + + + +-------+ + + | | 2023-04-16 | [facility] | 107 | (missing) | (missing) | | (unavailable | 09:14:07 | [facility] | | | | + + + +-------+ + + + + | Result panel 89 | + + + + + +--------+ + + | | 2023-04-16 | [facility] | 35.8 | (missing) | (missing) | | (unavailable | 09:14:07 | [facility] | | | | + + + +--------+ + + + + | Result panel 90 | + + + + + +--------+ + + | | 2023-04-16 | [facility] | 92.0 | (missing) | (missing) | | (unavailable | 09:14:07 | [facility] | | | | + + + +--------+ + + + + | Result panel 91 | + + + + + +--------+ + + | | 2023-04-16 | [facility] | 30.4 | (missing) | (missing) | | (unavailable | 09:: | [facility] | | | | + + + +--------+ + + + + | Result panel 92 | + + + + + +--------+ + + | | 2023-04-16 | [facility] | 33.1 | (missing) | (missing) | | (unavailable | 09::07 | [facility] | | | | + + + +--------+ + + + + | Result panel 93 | + + + + + +--------+ + + | | 2023-04-16 | [facility] | 13.8 | (missing) | (missing) | | (unavailable | :14:07 | [facility] | | | | + + + +--------+ + + + + | Result panel 94 | + + + + + +-------+ + + | | 2023-04-16 | [facility] | 190 | (missing) | (missing) | | (unavailable | :14:07 | [facility] | | | | + + + +-------+ + + Social History No information. Vital Signs + + + +---------+ | date | measurement | value | units | + + + +---------+ | 2022-08-19 00:00 | BMI | 29.0 | kg/m2 | + + + +---------+ | 2022-08-19 00:00 | height_metric | 165.1 | cm | + + + +---------+ | 2022-08-19 00:00 | height_standard | 65 | in | + + + +---------+ | 2022-08-19 00:00 | weight_metric | 79 | kg | + + + +---------+ | 2022-08-19 00:00 | weight_standard | 174.17 | lb | + + + +---------+ | 2022-08-21 00:00 | BP_diastolic | 75 | mmHg | + + + +---------+ | 2022-08-21 00:00 | BP_systolic | 115 | mmHg | + + + +---------+ | 2022-08-21 00:00 | heart_rate | 79 | /min | + + + +---------+ | 2022-08-21 00:00 | o2_saturation | 100 | % | + + + +---------+ | 2022-08-21 00:00 | respiration_rate | 15 | /min | + + + +---------+ | 2022-08-21 00:00 | temperature_metric | 35.94 | C | | | | | | + + + +---------+ | 2022-08-21 00:00 | | 96.7 | F | | | temperature_standar | | | | | d | | | + + + +---------+ | 2023-04-15 00:00 | BMI | 21.0 | kg/m2 | + + + +---------+ | 2023-04-15 00:00 | height_metric | 167.64 | cm | + + + +---------+ | 2023-04-15 00:00 | height_standard | 66 | in | + + + +---------+ | 2023-04-15 00:00 | weight_metric | 59.09 | kg | + + + +---------+ | 2023-04-15 00:00 | weight_standard | 130.27 | lb | + + + +---------+ | 2023-04-16 00:00 | BP_diastolic | 81 | mmHg | + + + +---------+ | 2023-04-16 00:00 | BP_systolic | 127 | mmHg | + + + +---------+ | 2023-04-16 00:00 | heart_rate | 79 | /min | + + + +---------+ | 2023-04-16 00:00 | o2_saturation | 99 | % | + + + +---------+ | 2023-04-16 00:00 | respiration_rate | 14 | /min | + + + +---------+ | 2023-04-16 00:00 | temperature_metric | 36.22 | C | | | | | | + + + +---------+ | 2023-04-16 00:00 | | 97.2 | F | | | temperature_standar | | | | | d | | | + + + +---------+"
--- OUTSIDE RECORDS SUMMARY | ~2023-07-19 | XMS | Continuity of Care Document ---
Demographics + + + | Address | [address] | | | [place] [address] | + + + | Preferred Language | Unknown | + + + | Marital Status | Never | + + + | Church Affiliation | Unknown | + + + | Race | or | + + + | Ethnic Group | Not or | + + + Author + + + | Author | [facility] | + + + | Organization | [facility] | + + + | Address | [address] | | | [place] [address] | + + + | Phone | | + + + Care Team Providers + + + + | Care Traffic Law Attorney Name | Role | Phone | + [...] | 2022-08-21 00:00 | CALCIUM CARBONATE | [facility] | + + + + | 2023-04-16 00:00 | CALCIUM CARBONATE | [facility] | + + + + | 2023-06-15 00:00 | CALCIUM CARBONATE | [facility] | + + + + | 2022-08-21 00:00 | CALCIUM CARBONATE | [facility] | + + + + | 2023-04-16 00:00 | CALCIUM CARBONATE | [facility] | + + + + | 2023-06-15 00:00 | CALCIUM CARBONATE | [facility] | + + + + | 2015-04-09 00:00 | OXYCODONE HCL | [facility] | + + + + | 2015-04-09 00:00 | OXYCODONE HCL | [facility] | + + + + | 2015-04-09 00:00 | OXYCODONE HCL | [facility] | + + + + | 2015-04-09 00:00 | OXYCODONE HCL | [facility] | + + + + | 2015-04-09 00:00 | OXYCODONE HCL | [facility] | + + + + | 2015-04-09 00:00 | OXYCODONE HCL | [facility] | + + + + | 2015-04-26 00:00 | OXYCODONE HCL | [facility] | + + + + | 2015-04-26 00:00 | OXYCODONE HCL | [facility] | + + + + | 2015-04-26 00:00 | OXYCODONE HCL | [facility] | + + + + | 2014-08-10 00:00 | OXYCODONE | [facility] | | | HCL/ACETAMINOPHEN | | + + + + | 2014-08-10 00:00 | OXYCODONE | [facility] | | | HCL/ACETAMINOPHEN | | + + + + | 2014-08-10 00:00 | OXYCODONE | [facility] | | | HCL/ACETAMINOPHEN | | + + + + | 2022-08-21 00:00 | OXYCODONE HCL | [facility] | + + + + | 2023-04-16 00:00 | OXYCODONE HCL | [facility] | + + + + | 2023-06-15 00:00 | OXYCODONE HCL | [facility] | + + + + | 2022-08-21 00:00 | MAGNESIUM CITRATE | [facility] | + + + + | 2023-04-16 00:00 | MAGNESIUM CITRATE | [facility] | + + + + | 2023-06-15 00:00 | MAGNESIUM CITRATE | [facility] | + + + + | 2022-08-21 00:00 | DOCUSATE SODIUM | [facility] | + + + + | 2023-04-16 00:00 | DOCUSATE SODIUM | [facility] | + + + + | 2023-06-15 00:00 | DOCUSATE SODIUM | [facility] | + + + + | 2022-08-21 00:00 | PHENOL | [facility] | + + + + | 2023-04-16 00:00 | PHENOL | [facility] | + + + + | 2023-06-15 00:00 | PHENOL | [facility] | + + + + | 2022-08-21 00:00 | DOCUSATE SODIUM | [facility] | + + + + | 2023-04-16 00:00 | DOCUSATE SODIUM | [facility] | + + + + | 2023-06-15 00:00 | DOCUSATE SODIUM | [facility] | + + + + | 2022-08-21 00:00 | CLOBAZAM | [facility] | + + + + | 2023-04-16 00:00 | CLOBAZAM | [facility] | + + + + | 2023-06-15 00:00 | CLOBAZAM | [facility] | + + + + | 2022-08-21 00:00 | CLINDAMYCIN PHOS/BENZOYL | [facility] | | | PEROX | | + + + + | 2023-04-16 00:00 | CLINDAMYCIN PHOS/BENZOYL | [facility] | | | [place] | | + + + + | 2023-06-15 00:00 | CLINDAMYCIN PHOS/BENZOYL | [facility] | | | [place] | | + + + + | 2023-04-16 00:00 | POTASSIUM CITRATE/CITRIC | [facility] | | | ACID | | + + + + | 2023-06-15 00:00 | POTASSIUM CITRATE/CITRIC | [facility] | | | ACID | | + + + + | 2022-08-21 00:00 | POTASSIUM CITRATE/CITRIC | [facility] | | | ACID | | + + + + | 2022-08-21 00:00 | Melatonin | [facility] | + + + + | 2023-04-16 00:00 | Melatonin | [facility] | + + + + | 2023-06-15 00:00 | Melatonin | [facility] | + + + + | 2022-08-21 00:00 | ACETAMINOPHEN | [facility] | + + + + | 2023-04-16 00:00 | ACETAMINOPHEN | [facility] | + + + + | 2023-06-15 00:00 | ACETAMINOPHEN | [facility] | + + + + | 2022-08-21 00:00 | CEFDINIR | [facility] | + + + + | 2022-08-21 00:00 | LAMOTRIGINE | [facility] | + + + + | 2023-04-16 00:00 | LAMOTRIGINE | [facility] | + + + + | 2023-06-15 00:00 | LAMOTRIGINE | [facility] | + + + + | 2022-08-21 00:00 | METRONIDAZOLE | [facility] | + + + + | 2023-04-16 00:00 | METRONIDAZOLE | [facility] | + + + + | 2023-06-15 00:00 | METRONIDAZOLE | [facility] | + + + + | 2022-08-21 00:00 | MAGNESIUM HYDROXIDE | [facility] | + + + + | 2023-04-16 00:00 | MAGNESIUM HYDROXIDE | [facility] | + + + + | 2023-06-15 00:00 | MAGNESIUM HYDROXIDE | [facility] | + + + + | 2022-08-21 00:00 | ZONISAMIDE | [facility] | + + + + | 2023-04-16 00:00 | ZONISAMIDE | [facility] | + + + + | 2023-06-15 00:00 | ZONISAMIDE | [facility] | + + + + | 2022-08-21 00:00 | CLINDAMYCIN PHOS/BENZOYL | [facility] | | | [place] | | + + + + | 2023-04-16 00:00 | CLINDAMYCIN PHOS/BENZOYL | [facility] | | | [place] | | + + + + | 2023-06-15 00:00 | CLINDAMYCIN PHOS/BENZOYL | [facility] | | | [place] | | + + + + | 2015-07-07 00:00 | CEPHALEXIN | [facility] | + + + + | 2015-07-07 00:00 | CEPHALEXIN | [facility] | + + + + | 2015-07-07 00:00 | CEPHALEXIN | [facility] | + + + + | 2022-08-21 00:00 | DIAZEPAM | [facility] | + + + + | 2023-04-16 00:00 | DIAZEPAM | [facility] | + + + + | 2023-06-15 00:00 | DIAZEPAM | [facility] | + + + + | 2022-08-21 00:00 | GABAPENTIN | [facility] | + + + + | 2023-04-16 00:00 | GABAPENTIN | [facility] | + + + + | 2023-06-15 00:00 | GABAPENTIN | [facility] | + + + + | 2022-08-21 00:00 | GABAPENTIN | [facility] | + + + + | 2023-04-16 00:00 | GABAPENTIN | [facility] | + + + + | 2023-06-15 00:00 | GABAPENTIN | [facility] | + + + + | 2022-08-21 00:00 | GUAIFENESIN | [facility] | + + + + | 2023-04-16 00:00 | GUAIFENESIN | [facility] | + + + + | 2023-06-15 00:00 | GUAIFENESIN | [facility] | + + + + | 2022-08-21 00:00 | MIDAZOLAM HCL | [facility] | + + + + | 2023-04-16 00:00 | MIDAZOLAM HCL | [facility] | + + + + | 2023-06-15 00:00 | MIDAZOLAM HCL | [facility] | + + + + | 2015-04-25 00:00 | SENNOSIDES | [facility] | + + + + | 2015-04-25 00:00 | SENNOSIDES | [facility] | + + + + | 2015-04-25 00:00 | SENNOSIDES | [facility] | + + + + | 2015-04-26 00:00 | SENNOSIDES | [facility] | + + + + | 2015-04-26 00:00 | SENNOSIDES | [facility] | + + + + | 2015-04-26 00:00 | SENNOSIDES | [facility] | + + + + | 2022-08-21 00:00 | CARBAMAZEPINE | [facility] | + + + + | 2023-04-16 00:00 | CARBAMAZEPINE | [facility] | + + + + | 2023-06-15 00:00 | CARBAMAZEPINE | [facility] | + + + + | 2022-08-21 00:00 | ZONISAMIDE | [facility] | + + + + | 2023-04-16 00:00 | ZONISAMIDE | [facility] | + + + + | 2023-06-15 00:00 | ZONISAMIDE | [facility] | + + + + | 2022-08-21 00:00 | CLONAZEPAM | [facility] | + + + + | 2023-04-16 00:00 | CLONAZEPAM | [facility] | + + + + | 2023-06-15 00:00 | CLONAZEPAM | [facility] | + + + + | 2022-08-21 00:00 | LORATADINE | [facility] | + + + + | 2023-04-16 00:00 | LORATADINE | [facility] | + + + + | 2023-06-15 00:00 | LORATADINE | [facility] | + + + + | 2022-08-21 00:00 | CALCIUM CARBONATE | [facility] | + + + + | 2023-04-16 00:00 | CALCIUM CARBONATE | [facility] | + + + + | 2023-06-15 00:00 | CALCIUM CARBONATE | [facility] | + + + + | 2022-08-21 00:00 | MAG HYDROX/AL | [facility] | | | HYDROX/SIMETH | | + + + + | 2023-04-16 00:00 | MAG HYDROX/AL | [facility] | | | HYDROX/SIMETH | | + + + + | 2023-06-15 00:00 | MAG HYDROX/AL | [facility] | | | HYDROX/SIMETH | | + + + + | 2022-08-21 00:00 | LACTOBACILLUS ACIDOPHILUS | [facility] | + + + + | 2023-04-16 00:00 | CARBAMIDE PEROXIDE | [facility] | + + + + | 2023-06-15 00:00 | CARBAMIDE PEROXIDE | [facility] | + + + + | 2022-08-21 00:00 | Cholecalciferol (Vitamin | [facility] | | | D3) | | + + + + | 2023-04-16 00:00 | Cholecalciferol (Vitamin | [facility] | | | D3) | | + + + + | 2023-06-15 00:00 | Cholecalciferol (Vitamin | [facility] | | | D3) | | + + + + | 2022-08-21 00:00 | DIAZEPAM | [facility] | + + + + | 2023-04-16 00:00 | DIAZEPAM | [facility] | + + + + | 2023-06-15 00:00 | DIAZEPAM | [facility] | + + + + | 2022-08-21 00:00 | CLINDAMYCIN PHOSPHATE | [facility] | + + + + | 2023-04-16 00:00 | CLINDAMYCIN PHOSPHATE | [facility] | + + + + | 2023-06-15 00:00 | CLINDAMYCIN PHOSPHATE | [facility] | + + + + | 2022-08-21 00:00 | LACOSAMIDE | [facility] | + + + + | 2023-04-16 00:00 | LACOSAMIDE | [facility] | + + + + | 2023-06-15 00:00 | LACOSAMIDE | [facility] | + + + + | 2022-08-21 00:00 | CARBAMIDE PEROXIDE | [facility] | + + + + | 2023-04-16 00:00 | CARBAMIDE PEROXIDE | [facility] | + + + + | 2023-06-15 00:00 | CARBAMIDE PEROXIDE | [facility] | + + + + | 2022-08-21 00:00 | LORATADINE | [facility] | + + + + | 2023-04-16 00:00 | LORATADINE | [facility] | + + + + | 2023-06-15 00:00 | LORATADINE | [facility] | + + + + | 2015-07-07 00:00 | | [facility] | | | SULFAMETHOXAZOLE/TRIMETHOPR | | | | IM DS | | + + + + | 2015-07-07 00:00 | | [facility] | | | SULFAMETHOXAZOLE/TRIMETHOPR | | | | IM DS | | + + + + | 2015-07-07 00:00 | | [facility] | | | SULFAMETHOXAZOLE/TRIMETHOPR | | | | IM DS | | + + + + | 2015-04-25 00:00 | POLYETHYLENE GLYCOL 3350 | [facility] | + + + + | 2015-04-25 00:00 | POLYETHYLENE GLYCOL 3350 | [facility] | + + + + | 2015-04-25 00:00 | POLYETHYLENE GLYCOL 3350 | [facility] | + + + + | 2022-08-21 00:00 | POLYETHYLENE GLYCOL 3350 | [facility] | + + + + | 2023-04-16 00:00 | POLYETHYLENE GLYCOL 3350 | [facility] | + + + + | 2023-06-15 00:00 | POLYETHYLENE GLYCOL 3350 | [facility] | + + + + | 2022-08-21 00:00 | POLYETHYLENE GLYCOL 3350 | [facility] | + + + + | 2023-04-16 00:00 | POLYETHYLENE GLYCOL 3350 | [facility] | + + + + | 2023-06-15 00:00 | POLYETHYLENE GLYCOL 3350 | [facility] | + + + + | 2022-08-21 00:00 | LOPERAMIDE HCL | [facility] | + + + + | 2023-04-16 00:00 | LOPERAMIDE HCL | [facility] | + + + + | 2023-06-15 00:00 | LOPERAMIDE HCL | [facility] | + + + + Problems + + + + | date | description | facility | + + + + | 2014-08-10 00:00 | Osteoarthritis of hip | [facility] | + + + + | 2014-08-10 00:00 | Osteoarthritis of hip | [facility] | + + + + | 2014-08-10 00:00 | Osteoarthritis of hip | [facility] | + + + + | 2015-04-23 00:00 | Obstipation | [facility] | + + + + | 2015-04-23 00:00 | Obstipation | [facility] | + + + + | 2015-04-23 00:00 | Obstipation | [facility] | + + + + | 2015-04-23 00:00 | Urinary tract infection | [facility] | + + + + | 2015-04-23 00:00 | Urinary tract infection | [facility] | + + + + | 2015-04-23 00:00 | Urinary tract infection | [facility] | + + + + | 2015-07-07 00:00 | Acute urinary tract | [facility] | | | infection | | + + + + | 2015-07-07 00:00 | Acute urinary tract | [facility] | | | infection | | + + + + | 2015-07-07 00:00 | Acute urinary tract | [facility] | | | infection | | + [...] (missing) | | (unavailable | 09:14:07 | rBennon | | | | | ) | [...]
[2023-07-19] MEDS ORDERED: CIPRO HC OTIC S10 ML AD (12:43)
[2023-07-19 13:00] VITALS: BP 116/84
== END 2023-07-19 13:00 | disposition home or self-care (01) ==
LOC: ED 11:10
DX: H60.92 Unspecified otitis externa, left ear (principal); F79 Unspecified intellectual disabilities; G40.909 Epilepsy, unspecified, not intractable, without status epilepticus; Z79.899 Other long term (current) drug therapy
CPT/HCPCS: 99282

== ENCOUNTER 2025-01-05 06:00 | Day surgery (SDC) | payer OTHER ==
--- NOTE | 2025-01-04 09:45 | NUR ---
Patient discharged via personal wheelchair with his caregiver.
[~2025-01-05] VITALS: Ht 167.6 cm; Wt 75.7 kg
[~2025-01-05 06:00] MED LIST changes: +CIPRO HC OTIC S10 ML AD; +LACTATED RINGER'S 1,000 ML IV SCH; +ONFI2.5 MG/1 M PO
[2025-01-05 06:15] VITALS: BP 123/81
[2025-01-05 06:43] LABS: BASOPHILS 0.8 % (0-2); EOSINOPHILS 7.4 % (0-6); HEMATOCRIT 40.7 % (35.0-50.0); HEMOGLOBIN 13.4 g/dL (12.0-18.0); LYMPHOCYTES 39.9 % (24-44); MCH 30.1 (27-36); MCHC 32.9 g/dl (30-36); MCV 91.6 fl (81-99); MONOCYTES 8.8 % (0-12); NEUTROPHILS 43.1 % (39-80); PLATELET COUNT 221 K/uL (140-440); RBC 4.45 M/ul (4.3-5.7); RDW 13.8 (10.5-15.0)
[2025-01-05] MEDS ORDERED: OXYMETAZOLINE HCL 30 ML BTL ONE (06:46)
[2025-01-05] MEDS ORDERED: ondansetron HCL 4 MG/2 ML VIAL ONE (06:47)
[2025-01-05] MEDS ORDERED: propofoL 200 MG/20 ML VIAL ONE (06:47)
[2025-01-05] MEDS ORDERED: LIDOCAINE HCL 2% 5 ML SDV ONE (06:47)
[2025-01-05] MEDS ORDERED: ROCURONIUM BROMIDE 50 MG/5 ML SYR ONE (06:47)
[2025-01-05] MEDS ORDERED: DEXAMETHASONE SOD PHOS 4 MG/ML VIAL ONE (06:47)
[2025-01-05] MEDS ORDERED: SUCCINYLCHOLINE IN 0.9% NACL 200 MG/10 ML SYRINGE ONE (06:47)
[2025-01-05] MEDS ORDERED: ESMOLOL HCL 100 MG/10 ML VIAL IV ONE (06:47)
[2025-01-05 06:50] LABS: ANION GAP 13.9 (7-21); CALCIUM 8.9 mg/dL (8.5-10.1); POTASSIUM 3.9 mmol/L (3.5-5.1)
[2025-01-05] MEDS ORDERED: MIDAZOLAM HCL 2 MG/2 ML VIAL ONE (06:51)
[2025-01-05] MEDS ORDERED: dexmedeTOMIDine HCl 200 MCG/2 ML VIAL ONE (06:59)
[2025-01-05] MEDS ORDERED: IBLOOD GLUCOSE TEST STRIP 1 EA TEST VI PRN ×2 (07:00→08:00)
[2025-01-05] MEDS ORDERED: LIDOCAINE HCL 1% 5 ML SDV INJ ONE (07:00)
[2025-01-05] MEDS ORDERED: ePHEDrine sulfate 50 MG/ML AMP ONE (07:22)
[2025-01-05] MEDS ORDERED: ACETAMINOPHEN 1,000 MG/100 ML VIAL ONE (07:58)
[2025-01-05] MEDS ORDERED: KETOROLAC TROMETHAMINE 30 MG/ML VIAL IV PRN (08:00)
[2025-01-05] MEDS ORDERED: ondansetron HCL 4 MG/2 ML VIAL IV PRN (08:00)
[2025-01-05] MEDS ORDERED: NALOXONE HCL 0.4 MG SYR IV PRN (08:00)
[2025-01-05] MEDS ORDERED: SUGAMMADEX SODIUM 200 MG/2 ML ML ONE (08:10)
--- NOTE | 2025-01-05 08:33 | NUR ---
01/05/25 0833 Lacey Sanz 0818-PT ARRIVES TO PACU VIA STRETCHER, PT RESTING SEMI FOWLERS, PT NOT RESPONSIVE TO TACTILE OR VERBAL STIMULI, VSS ON 6L VIA MASK, RR EVEN AND UNLABORED. 0820-PT TITRATED TO RA, VS REMAIN STABLE, PT'S MOUTH SUCTIONED FOR EXCESS SECRETIONS AND HOB ELEVATED. 0830-PT REACTIVE TO TACTILE STIMULI BUT CONTINUES TO REST W/ EYES CLOSED, VSS ON RA, RR EVEN AND UNLABORED.
[2025-01-05 08:46] VITALS: BP 121/73
--- NOTE | 2025-01-05 08:50 | NUR ---
Patient returns back to room 12 from PACU via bed. Report taken from DANGELO Rahman. Patient is sleeping upon arrival. Vital signs obtained and WDL. Patient had a dental cleaning and one cavity filled. No local was used. Juice was provided to patient. Caregiver is at bedside and understands the discharge requirements. Patient is chronically incontinent due to developmental delays and is wheelchair bound, so he is only required to drink something. She denies any needs at this time
[2025-01-05] MEDS ORDERED: SEVOFLURANE 250 ML BTL INH ONE (09:09)
[2025-01-05 09:40] VITALS: BP 104/62
--- NOTE | 2025-01-05 09:40 | NUR ---
Hourly rounding on patient. He has drank some juice and has not vomited. Vital signs obtained. Patient allowed to get dressed with assistance of his caregiver. Discharge information was then reviewed with patient's caregiver. She denies any questions. IV removed from right hand.
--- NOTE | 2025-01-05 11:54 | EKG ---
[facility] [address] [facility] [place] [address] Signed Normal sinus rhythm Low voltage QRS T wave abnormality, consider anterior ischemia Abnormal ECG When compared with ECG of 19-AUG-2022 13:57, Borderline criteria for Inferior infarct are no longer present Non-specific change in ST segment in Inferior leads T wave inversion no longer evident in Inferior leads QT has lengthened Confirmed by Fish Watson MD ([id number]) on 01/05/2025 11:53:47 AM Electronically Signed By: FISH WATSON MD 01/05/25 1154 PATIENT NAME: FRANCINE CHANEL Electrocardiogram DATE OF : 66 PHYSICIAN: FISH WATSON MD REPORT #: [id number] REPORT IS CONFIDENTIAL AND NOT TO BE RELEASED WITHOUT AUTHORIZATION
== END 2025-01-05 09:55 | disposition home or self-care (01) ==
LOC: OPS 06:00 → DS 06:00 → OPS 07:00 → DS 07:00 → OPS 09:55
PROVIDERS: Nurse Anesthetist, Certified Registered; ATTEND Dentist General Practice
PROC: 0CDWXZ2 Extraction of Upper Tooth, All, External Approach (ICD-10-PCS; 2025-01-05)
PROC: 0CDXXZ2 Extraction of Lower Tooth, All, External Approach (ICD-10-PCS; principal; 2025-01-05 07:00)
DX: K02.9 Dental caries, unspecified (principal); G89.4 Chronic pain syndrome; G80.9 Cerebral palsy, unspecified; Z88.8 Allergy status to other drugs, medicaments and biological substances; Z79.899 Other long term (current) drug therapy; G40.419 Other generalized epilepsy and epileptic syndromes, intractable, without status epilepticus
CPT/HCPCS: 00170; 36415; 71045; 80048; 85025; 93005; 93010; J0131; J0330; J1100; J2003; J2250; J2405; J2704; J3490; J7121

== ENCOUNTER 2025-06-13 19:45 | Emergency (ER) | payer OTHER ==
[~2025-06-13] VITALS: Ht 167.6 cm; Wt 76.0 kg
[~2025-06-13 19:45] MED LIST changes: -LACTATED RINGER'S 1,000 ML IV SCH
[2025-06-13 21:43] VITALS: BP 126/102
== END 2025-06-13 21:45 | disposition home or self-care (01) ==
LOC: ED 19:45
DX: G40.909 Epilepsy, unspecified, not intractable, without status epilepticus (principal); Z88.5 Allergy status to narcotic agent; Z79.899 Other long term (current) drug therapy
CPT/HCPCS: 99284

== ENCOUNTER 2025-06-17 18:09 | Emergency (ER) | payer OTHER ==
[~2025-06-17] VITALS: Ht 167.6 cm; Wt 76.0 kg
[2025-06-17 18:31] VITALS: BP 134/95
== END 2025-06-17 18:33 | disposition home or self-care (01) ==
LOC: ED 18:09
DX: S00.01XA Abrasion of scalp, initial encounter (principal); G40.909 Epilepsy, unspecified, not intractable, without status epilepticus; F79 Unspecified intellectual disabilities; Z88.5 Allergy status to narcotic agent; Z79.899 Other long term (current) drug therapy; W05.0XXA Fall from non-moving wheelchair, initial encounter
CPT/HCPCS: 99283